=== PATIENT | female | born 1985 | race Caucasian/White ===

== ENCOUNTER 2016-12-07 05:35 | Inpatient (IN) | payer OTHER ==
[~2016-12-07] VITALS: Ht 165 cm; Wt 74.4 kg
[~2016-12-07 05:35] MED LIST: FERR1TAB45 PO; FOLI5VIA2 IM; RINGERS SOLUTION,LACTATED 1,000 ML IV ONE
[2016-12-07] MEDS ORDERED: CITRIC ACID/SODIUM CITRATE 30 ML SOLUTION UDCUP PO ONE (05:45)
[2016-12-07] MEDS ORDERED: METOCLOPRAMIDE HCL 5 MG/ML 2 ML VIAL IVP ONE (05:45)
[2016-12-07 06:17] LABS: BASOPHILS # (AUTO) 0.03 K/uL (0.00-0.20); BASOPHILS % (AUTO) 0.4 % (0.0-2.0); EOSINOPHILS # (AUTO) 0.19 K/uL (0.00-0.70); HEMATOCRIT 39.8 % (36-46); HEMOGLOBIN 13.5 g/dL (12.0-16.0); LYMPHOCYTES # (AUTO) 2.4 K/uL (1.0-4.8); LYMPHOCYTES % (AUTO) 29.7 % (22.0-44.0); MEAN CORPUSCULAR HGB CONC 33.9 G/dL (31.0-37.0); MEAN CORPUSCULAR VOLUME 94 fL (80-100); MONOCYTES # (AUTO) 0.6 K/uL (0.1-1.0); MONOCYTES % (AUTO) 6.8 % (2.0-9.0); NEUTROPHILS # (AUTO) 4.9 K/uL (1.8-7.7); NEUTROPHILS % (AUTO) 60.8 % (40.0-70.0); PLATELET COUNT (AUTO) 182 K/uL (150-450); RED BLOOD CELL COUNT(AUTO) 4.23 MIL/uL (4.00-5.20)
[2016-12-07] MEDS ORDERED: MORPHINE SULFATE/PF 0.5 MG/ML 10 ML AMP ONE (06:38)
[2016-12-07] MEDS ORDERED: FentaNYL CITRATE-PF 100 MCG/2 ML VIAL ONE (06:39)
[2016-12-07] MEDS ORDERED: MIDAZOLAM HCL 2 MG/2 ML VIAL ONE (06:39)
[2016-12-07 07:25] VITALS: BP 99/68
[2016-12-07] MEDS ORDERED: OXYGEN THERAPY IH SCH ×2 (08:45)
[2016-12-07] MEDS ORDERED: DiphenhydrAMINE HCL 50 MG/ML VIAL IVP PRN ×2 (08:45)
[2016-12-07] MEDS ORDERED: MORPHINE SULFATE 4 MG/ML SYRINGE IVP PRN (08:45)
[2016-12-07] MEDS ORDERED: FentaNYL CITRATE-PF 100 MCG/2 ML VIAL IVP PRN ×2 (08:45)
[2016-12-07] MEDS ORDERED: MORPHINE SULFATE 2 MG/ML SYRINGE IVP PRN (08:45)
[2016-12-07] MEDS ORDERED: ONDANSETRON HCL 4 MG/2 ML VIAL IVP PRN ×2 (08:45)
[2016-12-07] MEDS ORDERED: ACETAMINOPHEN/CODEINE 300-30 MG TABLET PO PRN (09:00)
[2016-12-07] MEDS ORDERED: LANOLIN 7 GM OINTMENT TP PRN (09:00)
[2016-12-07] MEDS: DEXTROSE 5%-0.45% SODIUM CHL 1,000 ML IV SCH ×3 (09:59→21:08)
[2016-12-07] MEDS: NALBUPHINE HCL 10 MG/ML VIAL IVP SCH ×2 (13:02→18:51)
[2016-12-07] MEDS: KETOROLAC TROMETHAMINE 30 MG/ML VIAL IVP SCH ×2 (15:44→21:07)
[2016-12-07] MEDS: MAGNESIUM HYDROXIDE SUSPENSION 30 ML UDCUP PO SCH (22:15)
[2016-12-07] MEDS ORDERED: KETOROLAC TROMETHAMINE 60 MG/2 ML VIAL IM ONE (23:47)
[2016-12-07] MEDS ORDERED: DEXAMETHASONE SOD PHOS 4 MG/ML VIAL IVP ONE (23:47)
[2016-12-07] MEDS ORDERED: EPHEDrine SULFATE 50 MG/ML VIAL IM ONE (23:47)
[2016-12-07] MEDS ORDERED: ONDANSETRON HCL 4 MG/2 ML VIAL IVP ONE (23:47)
[2016-12-07] MEDS ORDERED: OXYTOCIN 10 UNITS/ML VIAL IM ONE (23:47)
[2016-12-08] MEDS: DEXTROSE 5%-0.45% SODIUM CHL 1,000 ML IV SCH (01:27)
[2016-12-08] MEDS: NALBUPHINE HCL 10 MG/ML VIAL IVP SCH ×2 (01:28→06:50)
[2016-12-08] MEDS ORDERED: IBUPROFEN 800 MG TABLET PO SCH (02:00)
[2016-12-08] MEDS: KETOROLAC TROMETHAMINE 30 MG/ML VIAL IVP SCH (03:07)
[2016-12-08] MEDS: IBUPROFEN 800 MG TABLET PO SCH ×2 (09:25→14:57)
[2016-12-08] MEDS: MAGNESIUM HYDROXIDE SUSPENSION 30 ML UDCUP PO SCH ×2 (09:25→20:06)
[2016-12-08] MEDS: ACETAMINOPHEN/CODEINE 300-30 MG TABLET PO PRN ×3 (09:31→20:07)
[2016-12-09] MEDS: IBUPROFEN 800 MG TABLET PO SCH ×3 (00:13→14:58)
[2016-12-09] MEDS: ACETAMINOPHEN/CODEINE 300-30 MG TABLET PO PRN ×2 (03:01→12:04)
[2016-12-09] MEDS: MAGNESIUM HYDROXIDE SUSPENSION 30 ML UDCUP PO SCH (08:04)
[2016-12-09] MEDS ORDERED: IBUP-1547 PO (17:54)
== END 2016-12-09 18:40 | disposition home or self-care (01) | DRG 766 ==
LOC: 4S 05:35 → PREOBSVTOIN 12-29 05:42
PROVIDERS: ADMIT Obstetrics & Gynecology; ATTEND Obstetrics & Gynecology
PROC: 10D00Z1 Extraction of Products of Conception, Low, Open Approach (ICD-10-PCS; principal; 2016-12-07)
PROC: 0UB70ZZ Excision of Bilateral Fallopian Tubes, Open Approach (ICD-10-PCS; 2016-12-07)
DX: O69.81X0 Labor and delivery complicated by cord around neck, without compression, not applicable or unspecified (principal); Z3A.39 39 weeks gestation of pregnancy; Z37.0 Single live birth; Z30.2 Encounter for sterilization
CPT/HCPCS: 86850; 86900; 86901; 87081; 88302; J0690; J1100; J1885; J2250; J2274; J2300; J2405; J2590; J2765; J3010; J3490; J7120